=== PATIENT | female | born 1960 | race African-American/Black ===

== ENCOUNTER 2017-11-27 03:52 | Emergency (ER) | payer MEDICAID, OTHER ==
[~2017-11-27] VITALS: Ht 170.2 cm; Wt 136.1 kg
[~2017-11-27 03:52] MED LIST: ASPI325T47 PO; CLO01T PO; ENA2.5T PO; FUR40T GT; HYDR12.56 PO; ISOS10TA14 GT; METO-5 PO; NIF10C GT; SIMV10TA84 PO
[2017-11-27 04:01] VITALS: BP 146/86
== END 2017-11-27 19:27 | disposition left against medical advice (07) ==
LOC: EDBD 03:52 → ER 03:58
DX: B34.9 Viral infection, unspecified (principal); I50.9 Heart failure, unspecified; I11.0 Hypertensive heart disease with heart failure; I25.10 Atherosclerotic heart disease of native coronary artery without angina pectoris; I25.2 Old myocardial infarction; Z87.891 Personal history of nicotine dependence; Z86.73 Personal history of transient ischemic attack (TIA), and cerebral infarction without residual deficits; Z79.82 Long term (current) use of aspirin
CPT/HCPCS: 93005